=== PATIENT | female | born 1970 | race Caucasian/White ===

== ENCOUNTER 2018-12-30 23:38 | Emergency (ER) | payer OTHER ==
[~2018-12-30] VITALS: Ht 172.7 cm; Wt 101.0 kg
[2018-12-31] MEDS ORDERED: LIDOCAINE HCL/PF 1% 10 MG/ML 5ML VIAL IJ ONE (05:15)
[2018-12-31 05:30] VITALS: BP 118/79
== END 2018-12-31 06:26 | disposition home or self-care (01) ==
LOC: ER 23:38
DX: S91.312A Laceration without foreign body, left foot, initial encounter (principal); W22.8XXA Striking against or struck by other objects, initial encounter; Y93.89 Activity, other specified; Y92.89 Other specified places as the place of occurrence of the external cause; Y99.8 Other external cause status
CPT/HCPCS: 12001; 73630; 81025; 99283; J3490; Z7610

== ENCOUNTER 2019-01-02 14:15 | Emergency (ER) | payer OTHER ==
[~2019-01-02] VITALS: Ht 172.7 cm; Wt 101.0 kg
[2019-01-02] MEDS ORDERED: BACITRACIN ZINC OINT UDPKT TOP ONE (16:15)
[2019-01-02 16:20] VITALS: BP 108/77
== END 2019-01-02 16:40 | disposition home or self-care (01) ==
LOC: ER 14:15
DX: S91.312D Laceration without foreign body, left foot, subsequent encounter (principal); Z90.49 Acquired absence of other specified parts of digestive tract; W22.8XXD Striking against or struck by other objects, subsequent encounter
CPT/HCPCS: 99283